=== PATIENT | female | born 1980 | race Caucasian/White ===

== ENCOUNTER → 2016-12-08 | Outpatient (CLI) | payer OTHER ==
--- NOTE | 2016-12-08 11:21 | KCIC ---
PROCEDURE MRA of the brain without contrast 12/08/2016 HISTORY Chronic migraine headaches. Family history of intracranial aneurysms. TECHNIQUE Unenhanced FLAIR and diffusion weighted axial images of the brain were obtained. Using 3D [id number] techniques, a MRA of the major arterial structures surrounding the [place] was performed. 3D MIP reconstructed images were obtained. FINDINGS The ventricles and sulci are within normal limits in size and configuration. No area of significant abnormal signal intensity is seen on the FLAIR images. No area of restricted diffusion is seen. MRA images of the anterior and posterior arterial circulations are within normal limits. No area of stenosis or occlusion is seen. No intracranial aneurysm is noted. IMPRESSION Negative study. Electronically signed by: Mendez Vang MD (Dec 08, 2016 11:20:29)
== END | disposition home or self-care (01) ==
LOC: KCIC MRI 09:55
PROVIDERS: ATTEND Physician Assistant
DX: G43.709 Chronic migraine without aura, not intractable, without status migrainosus (principal)
CPT/HCPCS: 70544